=== PATIENT | female | born 1965 | race Two or more races ===

== ENCOUNTER 2018-07-27 05:39 | Inpatient (IN) | payer OTHER ==
[~2018-07-27] VITALS: Ht 165.1 cm; Wt 72.6 kg
[2018-07-27] MEDS ORDERED: CARAMEL FLAVOR1 ML (05:53)
[2018-07-27] MEDS ORDERED: ESOMEPRAZOLE MA40 MG (05:54)
[2018-07-27] MEDS ORDERED: PROTONIX40 MG (05:54)
[2018-07-27] MEDS ORDERED: METOCLOPRAMIDE10 MG (05:54)
== END 2018-07-31 12:26 | disposition home or self-care (01) | DRG 392 ==
LOC: ER 05:39 → EDBD 05:41 → MEDI 19:57
DX: K29.00 Acute gastritis without bleeding (principal); E86.0 Dehydration; K21.9 Gastro-esophageal reflux disease without esophagitis; E03.8 Other specified hypothyroidism